=== PATIENT | female | born 1985 | race Hispanic/Latino ===

== ENCOUNTER 2024-03-30 10:32 | Emergency (ER) | payer BC, OTHER ==
[~2024-03-30] VITALS: Ht 152.4 cm; Wt 74.5 kg
[2024-03-30 11:10] VITALS: PULSE 72; RESP 20; TEMP 97.9
[2024-03-30] MEDS ORDERED: KETOROLAC TROMETHAMINE 30 MG/ML VIAL ONE (11:37)
[2024-03-30] MEDS ORDERED: FAMOTIDINE 20 MG/2 ML VIAL IV ONE (11:38)
[2024-03-30] MEDS: ONDANSETRON HCL INJ 2MG/ML 2ML 2 MG/ML VIAL IV STA (11:49)
[2024-03-30] MEDS: KETOROLAC TROMETHAMINE 30 MG/ML VIAL IV STA (11:49)
[2024-03-30] MEDS: FAMOTIDINE 20 MG/2 ML VIAL IV STA (11:49)
[2024-03-30] MEDS ORDERED: IOPAMIDOL 370 MG/ML 100 ML INFUS..BTL INJ ONE (12:04)
[2024-03-30 13:19] VITALS: BP 138/76; PULSE 83; RESP 20; TEMP 97.6; O2SAT 100
== END 2024-03-30 13:17 | disposition home or self-care (01) ==
LOC: FSED 11:04
DX: R10.31 Right lower quadrant pain (principal); N83.201 Unspecified ovarian cyst, right side; R19.7 Diarrhea, unspecified; R42 Dizziness and giddiness; R11.0 Nausea; R45.82 Worries
CPT/HCPCS: 74177; 80048; 80076; 81003; 81025; 86308; 99283; J1885; J2405; Q9967